=== PATIENT | female | born 1970 | race Caucasian/White ===

== ENCOUNTER 2023-02-05 10:42 | Emergency (ER) | payer OTHER ==
[2023-02-05] MEDS ORDERED: DELTASONE 20 MG ONE (11:09)
[2023-02-05] MEDS: DELTASONE 20 MG PO ONE (11:09)
[2023-02-05 11:10] VITALS: BP 149/63; PULSE 66; RESP 18; TEMP 97.5; O2SAT 98
--- NOTE | 2023-02-05 11:13 | ERPHSYRPT ---
- History of Present Illness Time Seen by Provider: 02/05/23 11:10 Source: patient Exam Limitations: no limitations Patient Subjective Stated Complaint: Rash Triage Nursing Assessment: Patient ambulated back to ED and transferred self to bed. Patient A+O X3. Patient's skin pink, warm and dry. Patient complains of rash to entire body that started on Saturday. Patient states she is not allergic to anything that she knows of. Patient denies pain or discomfort. Patient also denies SOB or trouble swallowing. Patient has fine red rash noted to back, Trunk, gretel arms, abdomen, gretel legs. Patient complains of itching to rash. Physician History: Patient is a 52-year-old female presents to our ED for evaluation of a pruritic rash. Symptoms started approximately 3 days ago. Patient is here on business from [facility]. Patient has a history of eczema. Patient states her pruritic rash started 3 days ago and has been ongoing. Patient has been self- medicating with 50 mg of Benadryl however this has not resolved her symptoms. Patient denies any respiratory symptomology. No shortness of breath. No wheezing. Patient otherwise feels well. Patient denies significant past medical history. She is not diabetic. Patient voices no other complaints or concerns at this time. Portions of this note were created with voice recognition technology. There may be grammatical, spelling, punctuation or sound alike errors Timing/Duration: day(s) (3 days) Severity: moderate Modifying Factors: Improves With: nothing Associated Symptoms: denies symptoms Allergies/Adverse Reactions: No Known Drug Allergies Allergy (Unverified 02/05/23 10:57) Hx Influenza Vaccination/Date Given: Yes Hx Pneumococcal Vaccination/Date Given: No Immunizations Up to Date: Yes Travel Risk - International Travel Have you traveled outside of the country in past 3 weeks: No - Coronavirus Screening Are you exhibiting any of the following symptoms?: No Close contact with a COVID-19 positive Pt in past 14-21 Days: No - Vaccine Status Have you recieved a Covid-19 vaccination: Yes Payer Specialist: Unknown - Vaccination Dates Dates if Unknown: na - Review of Systems Constitutional: No Symptoms, No Fever, No Chills Eyes: No Symptoms Ears, Nose, & Throat: No Symptoms Respiratory: No Symptoms, No Cough, No Dyspnea Cardiac: No Symptoms, No Chest Pain, No Edema, No Syncope Abdominal/Gastrointestinal: No Symptoms, No Abdominal Pain, No Nausea, No Vomiting, No Diarrhea Genitourinary Symptoms: No Symptoms, No Dysuria Musculoskeletal: No Symptoms, No Back Pain, No Neck Pain Skin: No Symptoms, No Rash Neurological: No Symptoms, No Dizziness, No Focal Weakness, No Sensory Changes Psychological: No Symptoms Endocrine: No Symptoms Hematologic/Lymphatic: No Symptoms Immunological/Allergic: No Symptoms All Other Systems: Reviewed and Negative - Past Medical History Pertinent Past Medical History: No Neurological History: No Pertinent History ENT History: No Pertinent History Cardiac History: No Pertinent History Respiratory History: No Pertinent History Endocrine Medical History: No Pertinent History Musculoskeletal History: No Pertinent History GI Medical History: No Pertinent History History: No Pertinent History Psycho-Social History: No Pertinent History Female Reproductive Disorders: No Pertinent History - Past Surgical History Past Surgical History: No Neuro Surgical History: No Pertinent History Cardiac: No Pertinent History Respiratory: No Pertinent History Gastrointestinal: No Pertinent History Genitourinary: No Pertinent History Musculoskeletal: No Pertinent History Female Surgical History: No Pertinent History - Social History Smoking Status: Never smoker Exposure to second hand smoke: No Drug Use: none Patient Lives Alone: No - Nursing Vital Signs Nursing Vital Signs: Initial Vital Signs Temperature 97.5 F 02/05/23 10:59 Pulse Rate 66 02/05/23 10:59 Respiratory Rate 18 02/05/23 10:59 Blood Pressure 149/63 02/05/23 10:59 O2 Sat by Pulse Oximetry 96 02/05/23 10:59 Pain Scale Pain Intensity 0 - Physical Exam General Appearance: no apparent distress, alert Eye Exam: PERRL/EOMI, eyes nml inspection Ears, Nose, Throat Exam: normal ENT inspection, TMs normal, pharynx normal, moist mucous membranes Neck Exam: normal inspection, non-tender, supple, full range of motion Respiratory Exam: normal breath sounds, lungs clear, No respiratory distress Cardiovascular Exam: regular rate/rhythm, normal heart sounds, normal peripheral pulses Gastrointestinal/Abdomen Exam: soft, normal bowel sounds, No tenderness, No mass Back Exam: normal inspection, normal range of motion, No CVA tenderness, No vertebral tenderness Extremity Exam: normal inspection, normal range of motion, pelvis stable Neurologic Exam: alert, oriented x 3, cooperative, normal mood/affect, nml cerebellar function, nml station & gait, sensation nml, No motor deficits Skin Exam: normal color, warm, dry, other (Fine macular papular rash across chest arms and lower extremities. No open or draining lesions.), No rash Lymphatic Exam: No adenopathy SpO2 Interpretation: normal SpO2: 98 O2 Delivery: Room Air - Course Nursing assessment & vital signs reviewed: Yes Ordered Tests: Medication Summary Discontinued Medications Generic Name Dose Route Start Last Admin Trade Name Candace PRN Reason Stop Dose Admin Prednisone 60 mg 02/05/23 11:07 Prednisone 20 Mg Tablet PO 02/05/23 11:08 STAT ONE - Progress Progress: improved Progress Note: Patient 52-year-old female presents to our ED for evaluation of a pruritic rash has been ongoing for 3 days. Patient has been self medicated with Benadryl with no significant improvement. [place] Ph ysical exam reveals a fine macular papular rash throughout her body including her upper extremities trunk and lower extremities. Patient received a dose of prednisone in our ED. A prescription for the same was forwarded to patient's pharmacy. Patient does not have a local physician available to her at this time. A referral to Dr. Jeronimo was provided. Patient voices no other complaints or concerns at this time. Portions of this note were created with voice recognition technology. There may be grammatical, spelling, punctuation or sound alike errors Complexity of problems addressed is moderate acute complicated, new diagnosis with uncertain prognosis No critical care time Complexity data reviewed and analyzed is none. Diagnosis made based on history and physical exam. No specialized testing ordered Risk of complication and or risk of morbidity/mortality of patient management is moderate. A prescription for prednisone was forwarded to patient's pharmacy. We will discharge home. Patient agrees to follow-up with Dr. Jeronimo within 48 hours for reevaluation. Vital stable. Time spent to discharge patient is approximately 10 to 15 minutes. Plan of care established for shared decision making. No social determinants of health present to impede follow-up. Patient voices no other complaints or concerns at this time. Portions of this note were created with voice recognition technology. There may be grammatical, spelling, punctuation or sound alike errors 02/05/23 11:20 Counseled pt/family regarding: diagnosis, need for follow-up - Departure Departure Disposition: Home Clinical Impression: Pruritic rash Condition: Stable Critical Care Time: No Referrals: LATESHA JERONIMO MD [ACTIVE STAFF] - Follow up/PCP as directed Additional Instructions: Discharge/Care Plan ESTEFANY JIMÉNEZ was seen on 02/05/23 in the Emergency Room. The patient was counseled regarding Diagnosis,Lab results, Imaging studies, need for follow up and when to return to the Emergency Room. Prescriptions given: Discharge Note I have spoken with the patient and/or caregivers. I have explained the patient's condition, diagnosis and treatment plan based on the information available to me at this time. I have answered the patient's and/or caregiver's questions and addressed any concerns. The patient and/or caregivers have as good understanding of the patient's diagnosis, condition and treatment plan as can be expected at this point. The vital signs have been stable. The patient's condition is stable and appropriate for discharge from the emergency department. The patient will pursue further outpatient evaluation with the primary care physician or other designated or consulting physician as outlined in the discharge instructions. The patient and/or caregivers are agreeable to this plan of care and follow-up instructions have been explained in detail. The patient and/or caregivers have received these instruction. The patient/and or caregivers are aware that any significant change in condition or worsening of symptoms should prompt an immediate return to this or the closest emergency department or call 911. Prescriptions: Prednisone 10 mg [Deltasone 10 mg] 40 mg PO DAILY 3 Days #12 tablet
== END 2023-02-05 11:20 | disposition home or self-care (01) ==
LOC: ED 10:42
DX: L29.9 Pruritus, unspecified (principal); Z79.52 Long term (current) use of systemic steroids
CPT/HCPCS: 99281; A9270-GY